=== PATIENT | male | born 1975 | race Asian ===

== ENCOUNTER 2019-07-02 05:53 | Day surgery (SDC) | payer OTHER ==
[~2019-07-02] VITALS: Ht 172.7 cm; Wt 79.2 kg
[2019-07-02 06:58] VITALS: Ht 172.7 cm; Wt 79.2 kg
[2019-07-02 08:19] VITALS: BP 138/81; PULSE 72; RESP 20
[2019-07-02] MEDS ORDERED: MIDAZOLAM 1 MG/ML 2 ML INJ ONE ×3 (08:49)
[2019-07-02] MEDS ORDERED: FENTAnyl 50 MCG/ML VIAL ONE (08:49)
[2019-07-02 09:05] VITALS: BP 125/83; RESP 16
== END 2019-07-02 09:56 | disposition home or self-care (01) ==
LOC: GIL 05:53
PROVIDERS: ATTEND Internal Medicine Gastroenterology
DX: Z12.11 Encounter for screening for malignant neoplasm of colon (principal); D12.3 Benign neoplasm of transverse colon; K29.60 Other gastritis without bleeding
CPT/HCPCS: 43239; 45380; 88305; J2250; J3010